=== PATIENT | male | born 1995 | race Caucasian/White ===

== ENCOUNTER 2019-04-22 07:46 | Day surgery (SDC) | payer BC ==
[~2019-04-22 07:46] MED LIST: ACETAMINOPHEN 1,000 MG/100 ML BTL IVPB ONE
[2019-04-22] MEDS ORDERED: FENTANYL PF 100MCG/2ML VIAL IV ONE (07:47)
[2019-04-22] MEDS ORDERED: PROPOFOL 10 MG/ML VIAL IV ONE (07:47)
[2019-04-22] MEDS ORDERED: LIDOCAINE 2% MDV (20MG/ML) 20ML VIAL IV ONE (07:47)
[2019-04-22] MEDS ORDERED: MIDAZOLAM HCL 2MG/2ML VIAL IV ONE (07:47)
[2019-04-22] MEDS ORDERED: RINGERS SOLUTION,LACTATED 1,000 ML IV ONE (09:09)
[2019-04-22] MEDS ORDERED: BUPIVACAINE 0.25% W/EPI MPF 30ML VIAL SQ ONE (11:04)
--- NOTE | 2019-04-23 06:02 | Operative Note ---
DATE OF SURGERY: 04/22/2019 SURGEON: Joo Long DO PREOPERATIVE DIAGNOSIS: Scalp mass. POSTOPERATIVE DIAGNOSIS: Scalp mass. OPERATION: Wide excision of scalp mass measuring 3 cm into the subcu. PROCEDURE The patient is a 23-year-old male who was brought to the operating room and placed in a supine position. Local with IV sedation was given per department of anesthesia. The patient's scalp was shaved of hair and prepped and draped in the usual fashion. The area around the mass was anesthetized with a total of 5 mL of 0.25% Sensorcaine with epinephrine. The scalp was then incised down through the subcu down to the capsule of a large sebaceous cyst. This was dissected free from the surrounding tissue and passed off the field. This measured 3 cm into the subcu. Hemostasis was noted. The wound was closed with 3- 0 Prolene. The patient was taken to the recovery room in stable condition. DAT
== END 2019-04-22 11:31 | disposition home or self-care (01) ==
LOC: SUR 07:46
PROVIDERS: ATTEND Surgery
DX: R22.0 Localized swelling, mass and lump, head (principal)
CPT/HCPCS: J7120